=== PATIENT | female | born 1995 | race Caucasian/White ===

== ENCOUNTER 2017-02-19 22:36 | Emergency (ER) | payer SELFPAY ==
[~2017-02-19] VITALS: Ht 167.6 cm; Wt 68.0 kg
--- NOTE | 2017-02-19 22:46 | NUR ---
PT SAGAR FROM STREET FOR FIRST TIME SEIZURE, WITNESSED, NO KO, NO POST ICTAL. PT AOX4 RR EVEN AND UNLABORED. NO SOB NOTED. NAD NOTED. NO NVD AT THIS TIME. PT GOWNED AND PLACED ON MONITOR. PT NOT DIAPHORETIC. DR. FERNÁNDEZ AT BEDSIDE FOR EVAL. PT PLACED ON SEIZURE PRECAUTION.
[2017-02-19] MEDS ORDERED: LORAZEPAM INJ 2 MG/ML VIAL IVP ONE (23:00)
[2017-02-19] MEDS ORDERED: LORAZEPAM INJ 2 MG/ML VIAL ONE (23:01)
--- NOTE | 2017-02-19 23:15 | NUR ---
LAB AT BEDSIDE FOR BLOOD DRAW.
[2017-02-19 23:23] LABS: BASOPHILS % (AUTO) 0.5 % (0.0-2.0); EOSINOPHILS # (AUTO) 0.1 /CMM (0.0-0.7); EOSINOPHILS % (AUTO) 1.3 % (0.0-6.0); HEMATOCRIT 45 % (33-45); HEMOGLOBIN 15.4 g/dL (11.5-14.8); LYMPHOCYTES # (AUTO) 2.2 /CMM (0.8-4.8); LYMPHOCYTES % (AUTO) 31.1 % (20.0-44.0); MEAN CORPUSCULAR HEMOGLOBIN 28 PG (26.0-33.0); MEAN CORPUSCULAR HGB CONC 34 g/dl (31.0-36.0); MEAN CORPUSCULAR VOLUME 84 fL (82-100); MONOCYTES # (AUTO) 0.3 /CMM (0.1-1.30); MONOCYTES % (AUTO) 3.7 % (2.0-12.0); NEUTROPHILS # (AUTO) 4.6 /CMM (1.8-8.9); NEUTROPHILS % (AUTO) 63.4 % (43.0-81.0); PLATELET COUNT (AUTO) 381 /CMM (150-450); RDW COEFFICIENT OF VARIATION 13.6 (11.5-15.0); RED BLOOD CELL COUNT(AUTO) 5.43 MIL/uL (4.0-5.2); WHITE BLOOD COUNT (AUTO) 7.2 K/uL (4.3-11.0)
[2017-02-19 23:33] LABS: CREATININE 1.2 mg/dL (0.6-1.3); POTASSIUM 3.3 mmol/L (3.5-5.1)
--- NOTE | 2017-02-19 23:35 | NUR ---
URINE COLLECTED. SENT TO LAB
[2017-02-19 23:36] LABS: PROTHROMBIN TIME 10.4 SECS (9.5-12.7)
[2017-02-19 23:38] LABS: ALBUMIN 4.5 g/dL (3.4-5.0); BILIRUBIN,DIRECT 0.1 mg/dL (0.0-0.2); BILIRUBIN,TOTAL 0.7 mg/dL (0.2-1.0); TOTAL PROTEIN, SERUM 8.2 g/dL (6.4-8.2)
[2017-02-19 23:40] LABS: CALCIUM, SERUM 8.8 mg/dL (8.5-10.1)
--- NOTE | 2017-02-20 00:09 | NUR ---
PT REFUSED CT SCAN. RISK AND BENEFITS EXPLAINED X3. PT STRONGLY REFSUED, DR. FERNÁNDEZ AWARE.
--- NOTE | 2017-02-20 01:03 | NUR ---
DR. FERNÁNDEZ SPEAKING TO PT REGARDING CT SCAN. RISK AND BENEFITS EXPLAINED X3 PER MD.
--- NOTE | 2017-02-20 01:24 | NUR ---
PT STILL REFUSES TO DO CT SCAN. RISK AND BENEFITS EXPLAINED X3. DR. FERNÁNDEZ. AWARE
--- NOTE | 2017-02-20 01:33 | NUR ---
IV removed. Catheter intact and site benign. Pressure and 4x4 applied to site. No bleeding noted. Patient discharged to home in stable condition. Written and verbal after care instructions given. Patient verbalizes understanding of instruction. ambulatory with a steady gait. no seizures noted during time here. instructed not to drive. pt verbalize understanding.
[2017-02-20 01:42] VITALS: BP 142/76
== END 2017-02-20 01:33 | disposition home or self-care (01) ==
LOC: ER 22:37
DX: R56.9 Unspecified convulsions (principal); F14.10 Cocaine abuse, uncomplicated; F12.10 Cannabis abuse, uncomplicated; R79.1 Abnormal coagulation profile
CPT/HCPCS: 36415; 80048; 80076; 80305; 82962; 84703; 85025; 85730; 96374; 99285; A4606; G0480; J2060; Z7610